=== PATIENT | female | born 1955 | race Hispanic/Latino ===

== ENCOUNTER → 2018-03-07 | Day surgery (SDC) | payer BC ==
[~2018-03-07] MED LIST: CENTRUM; FENTANYL CITRATE/PF 100MCG/2 ML INJ ONE; LEVOTHYROXINE112 MCG PO; LIDOCAINE HCL 2% LOCAL INJ 5 ML SDV VIAL INJ ONE; MIDAZOLAM HCL 2 MG/2 ML VIAL ONE; PROPOFOL IV EMULSION 10 MG/ML 20 ML VIAL ONE
--- NOTE | 2018-03-07 09:36 | Operative Report ---
DATE OF PROCEDURE: March 07, 2018 REFERRING PHYSICIAN: Alicia Thompson MD PROCEDURE PERFORMED: Colonoscopy and polypectomy. INDICATIONS FOR COLONOSCOPY: Colorectal cancer screening, personal history of colon polyps. MEDICATION: Patient was done under MAC. Please see anesthesiologist's note. PROCEDURE: With the patient in the left lateral decubitus position, the flexible fiberoptic Olympus colonoscope was inserted into the rectum with ease and advanced all the way to the cecum. Three polyps was snared from the cecum. One polyp was hot biopsied from the ascending colon. The transverse and descending appeared to be within normal limits. One polyp was snared and 1 polyp was hot biopsied from the sigmoid. One polyp was hot biopsied from the rectum. The scope was then retroflexed into the distal rectum, and small internal hemorrhoids were noted, none of which was actively bleeding. The scope was then straightened out. It was subsequently withdrawn. Patient tolerated the procedure well. IMPRESSION 1. Cecal polyps times 3, snared. 2. Ascending colon polyp, hot biopsied. 3. Sigmoid colon polyps times 2, one hot biopsied and one snared. 4. Rectal polyp, hot biopsied. 5. Small internal hemorrhoids, none actively bleeding. 6. A total of 7 polyps were removed. PLAN: Follow up histology. Initiate high-fiber, low-fat diet. Initiate high-fiber supplement. Patient will need a followup colonoscopy in 3 years. Job#: [id number] cc:ALICIA THOMPSON MD
== END | disposition home or self-care (01) ==
LOC: OR 06:36
PROVIDERS: ATTEND Internal Medicine Gastroenterology
DX: Z12.11 Encounter for screening for malignant neoplasm of colon (principal); K63.5 Polyp of colon; K62.1 Rectal polyp; K64.8 Other hemorrhoids; K76.0 Fatty (change of) liver, not elsewhere classified; G47.33 Obstructive sleep apnea (adult) (pediatric); I10 Essential (primary) hypertension; Z01.810 Encounter for preprocedural cardiovascular examination; E03.9 Hypothyroidism, unspecified; R07.9 Chest pain, unspecified
CPT/HCPCS: 45384; 45385; 93005; J2001; J2250; 45378